=== PATIENT | male | born 1975 | race Caucasian/White ===

== ENCOUNTER 2020-11-19 18:42 | Emergency (ER) | payer BC ==
[~2020-11-19] VITALS: Ht 175.3 cm; Wt 115.7 kg
[2020-11-19 19:34] LABS: ABSOLUTE NEUTROPHILS 6.8 thou/uL (1.4-8.2); BASOPHILS 0.8 % (0.0-2.0); EOSINOPHILS 1.9 % (0.0-3.0); HEMOGLOBIN 14.3 gm/dL (14.0-18.0); LYMPHOCYTES 26.2 % (24.0-44.0); MCH 29.3 pg (26.0-34.0); MCHC 33.4 g/dL (28.0-37.0); MCV 87.8 fL (80.0-100.0); MONOCYTES 6.3 % (1.0-8.0); PLATELET COUNT 264 thou/uL (150-400); POLYS 64.8 % (36.0-66.0); RBC 4.89 mil/uL (4.50-6.00); RDW 13.2 % (10.5-14.5); WBC 10.5 thou/uL (4.0-11.0)
[2020-11-19 19:36] LABS: ANION GAP 13 mmol/L (7-16); BUN 14 mg/dL (7-18); CALCIUM 8.9 mg/dL (8.5-10.1); CHLORIDE 100 mmol/L (98-107); CO2 26 mmol/L (21-32); CREATININE 1.1 mg/dL (0.7-1.3); GLUCOSE 167 mg/dL (74-106); POTASSIUM 3.5 mmol/L (3.5-5.1); SODIUM 139 mmol/L (136-145)
[2020-11-19 19:46] LABS: ALBUMIN 4.2 g/dL (3.4-5.0); SGOT 23 U/L (15-37); SGPT 47 U/L (30-65); TOTAL BILIRUBIN 0.5 mg/dL (0.2-1.0); TOTAL PROTEIN 7.5 g/dL (6.4-8.2); TROPONIN-I <0.06 ng/mL (<0.06)
[2020-11-19 20:39] VITALS: BP 119/81
--- NOTE | 2020-11-20 07:26 | EKG ---
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
== END 2020-11-19 20:40 | disposition home or self-care (01) ==
LOC: ER 18:42
PROVIDERS: Emergency Medicine
DX: R07.9 Chest pain, unspecified (principal); Z87.891 Personal history of nicotine dependence

== ENCOUNTER → 2021-01-14 | Outpatient (CLI) | payer BC, OTHER | LOC: SJCVCIMAG 11:53 | PROVIDERS: ATTEND Internal Medicine | DX: R00.2 Palpitations (principal); R07.9 Chest pain, unspecified ==